=== PATIENT | female | born 1955 | race Asian ===

== ENCOUNTER 2019-07-18 20:20 | Emergency (ER) | payer OTHER ==
[~2019-07-18] VITALS: Ht 152.4 cm; Wt 50.9 kg
[2019-07-18 20:41] VITALS: Ht 152.4 cm; Wt 50.9 kg
[2019-07-18] MEDS ORDERED: ACETAMINOPHEN 500 MG TAB PO STA (23:45)
[2019-07-19 00:49] VITALS: BP 135/82; PULSE 81; RESP 18
== END 2019-07-19 00:50 | disposition home or self-care (01) ==
LOC: E/R 20:20
DX: S09.90XA Unspecified injury of head, initial encounter (principal); I10 Essential (primary) hypertension; E11.9 Type 2 diabetes mellitus without complications; R51 Headache; W01.190A Fall on same level from slipping, tripping and stumbling with subsequent striking against furniture, initial encounter; Y92.9 Unspecified place or not applicable
CPT/HCPCS: 70450